=== PATIENT | male | born 1950 | race African-American/Black ===

== ENCOUNTER 2024-01-16 20:52 | Emergency (ER) | payer BC, MEDICARE ==
[~2024-01-16] VITALS: Ht 180.3 cm; Wt 91.0 kg
[2024-01-16 21:11] VITALS: O2SAT 99
[2024-01-16] MEDS: GLUCAGON,HUMAN RECOMBINANT 1MG/VIAL IM ONE (21:59)
[2024-01-17 00:13] VITALS: BP 163/93; PULSE 76; RESP 15; TEMP 98.5
== END 2024-01-17 00:19 | disposition home or self-care (01) ==
LOC: ER 20:52
DX: R13.19 Other dysphagia (principal)
CPT/HCPCS: 99284; 71045; 70360; 96372; J1610

== ENCOUNTER 2025-03-03 09:24 | Emergency (ER) | payer OTHER, MEDICARE ==
[~2025-03-03] VITALS: Ht 180.3 cm; Wt 95.0 kg
[~2025-03-03 09:24] MED LIST: ATOR10TA69 PO; CARD12 PO; DONE23TA14 MT; HYDR50TA40 PO; LOSA100T33 PO; METF-1150 MT; PROT40 MT; SUCR1TAB PO
[2025-03-03 09:28] VITALS: O2SAT 99
[2025-03-03 09:42] VITALS: TEMP 36.9; O2SAT 97
[2025-03-03 10:06] VITALS: BP 143/59; PULSE 87; RESP 18
[2025-03-03] MEDS: IBUPROFEN 600MG TABLET PO ONE (10:06)
[2025-03-03 10:07] VITALS: TEMP 98.4
[2025-03-03] MEDS: ACETAMINOPHEN 325MG TABLET PO ONE (10:07)
[2025-03-03] MEDS ORDERED: TOPUD MT (11:55)
[2025-03-03] MEDS ORDERED: IBUP-2029 MT (11:55)
== END 2025-03-03 12:37 | disposition home or self-care (01) ==
LOC: ER 09:24
DX: S82.61XA Displaced fracture of lateral malleolus of right fibula, initial encounter for closed fracture (principal); E11.9 Type 2 diabetes mellitus without complications; I10 Essential (primary) hypertension; E78.5 Hyperlipidemia, unspecified; Z79.899 Other long term (current) drug therapy; Z79.84 Long term (current) use of oral hypoglycemic drugs; W19.XXXA Unspecified fall, initial encounter; Y93.89 Activity, other specified; Y92.89 Other specified places as the place of occurrence of the external cause; Y99.8 Other external cause status
CPT/HCPCS: 29515; 73590; 73600; 73620; 99283; 99284